=== PATIENT | female | born 1975 | race Two or more races ===

== ENCOUNTER 2018-07-10 10:50 | Outpatient (CLI) | payer BC ==
[2018-07-10 12:02] LABS: BASOPHILS # (AUTO) 0.1 /CMM (0.0-0.2); BASOPHILS % (AUTO) 0.9 % (0.0-2.0); EOSINOPHILS % (AUTO) 1.6 % (0.0-6.0); HEMATOCRIT 41 % (33-45); HEMOGLOBIN 13.8 g/dL (11.5-14.8); LYMPHOCYTES # (AUTO) 1.4 /CMM (0.8-4.8); LYMPHOCYTES % (AUTO) 24.6 % (20.0-44.0); MEAN CORPUSCULAR HGB CONC 34 g/dl (31.0-36.0); MEAN CORPUSCULAR VOLUME 89 fL (82-100); MONOCYTES # (AUTO) 0.3 /CMM (0.1-1.30); MONOCYTES % (AUTO) 5.5 % (2.0-12.0); NEUTROPHILS # (AUTO) 3.9 /CMM (1.8-8.9); NEUTROPHILS % (AUTO) 67.4 % (43.0-81.0); PLATELET COUNT (AUTO) 311 /CMM (150-450); RED BLOOD CELL COUNT(AUTO) 4.65 MIL/uL (4.0-5.2); WHITE BLOOD COUNT (AUTO) 5.8 K/uL (4.3-11.0)
[2018-07-10 12:14] LABS: ALBUMIN 4.1 g/dL (3.4-5.0); BILIRUBIN,TOTAL 0.4 mg/dL (0.2-1.0); CALCIUM, SERUM 9.4 mg/dL (8.5-10.1); CREATININE 0.7 mg/dL (0.6-1.3); MAGNESIUM 1.8 mg/dL (1.8-2.4); POTASSIUM 4.5 mmol/L (3.5-5.1)
[2018-07-10 12:23] LABS: THYROID STIMULATING HORMONE 0.812 uIU/mL (0.358-3.74)
== END 2018-07-10 23:59 | disposition home or self-care (01) ==
LOC: LAB 10:50
PROVIDERS: ATTEND Family Medicine
DX: M77.32 Calcaneal spur, left foot (principal); R53.83 Other fatigue; R22.42 Localized swelling, mass and lump, left lower limb; M25.561 Pain in right knee; M25.562 Pain in left knee
CPT/HCPCS: 36415; 73562; 73610-TC; 80053-TC; 80061-TC; 83735-TC; 84439-TC; 84443-TC; 85025-TC; 86431-TC

== ENCOUNTER 2018-08-21 09:37 | Outpatient (CLI) | payer BC | END 2018-08-21 23:59 | disposition home or self-care (01) | LOC: MRI 09:37 | PROVIDERS: ATTEND Family Medicine | DX: S93.492A Sprain of other ligament of left ankle, initial encounter (principal); S83.241A Other tear of medial meniscus, current injury, right knee, initial encounter; M25.461 Effusion, right knee; X58.XXXA Exposure to other specified factors, initial encounter; Y93.89 Activity, other specified; Y92.89 Other specified places as the place of occurrence of the external cause; Y99.8 Other external cause status | CPT/HCPCS: 73721-TC ==

== ENCOUNTER 2019-01-22 08:51 | Outpatient (CLI) | payer BC ==
[2019-01-22 09:32] LABS: CREATININE 0.7 mg/dL (0.6-1.3)
== END 2019-01-22 23:59 | disposition home or self-care (01) ==
LOC: LAB 08:51
PROVIDERS: ATTEND Family Medicine
DX: R31.9 Hematuria, unspecified (principal)
CPT/HCPCS: 36415; 82565-TC; 84520-TC

== ENCOUNTER 2019-02-12 09:09 | Outpatient (CLI) | payer BC ==
[2019-02-12] MEDS ORDERED: IV NS 0.9% 250 ML IV ONE (09:33)
[2019-02-12] MEDS ORDERED: IOHEXOL-300 100 ML VIAL IV ONE (09:33)
[2019-02-12] MEDS ORDERED: CT SWABBABLE VALVE TRANS SET 1 EA INFUS.SET MC ONE (09:33)
== END 2019-02-12 23:59 | disposition home or self-care (01) ==
LOC: CT 09:09
PROVIDERS: ATTEND Family Medicine
DX: N83.201 Unspecified ovarian cyst, right side (principal); N83.202 Unspecified ovarian cyst, left side; N88.8 Other specified noninflammatory disorders of cervix uteri; N28.89 Other specified disorders of kidney and ureter; R16.0 Hepatomegaly, not elsewhere classified; M47.814 Spondylosis without myelopathy or radiculopathy, thoracic region
CPT/HCPCS: 74178; J7050; Q9967

== ENCOUNTER 2021-03-18 11:09 | Outpatient (CLI) | payer BC | END 2021-03-18 23:59 | disposition home or self-care (01) | LOC: US 11:09 | PROVIDERS: ATTEND Family Medicine | DX: N83.202 Unspecified ovarian cyst, left side (principal); N88.8 Other specified noninflammatory disorders of cervix uteri; R93.89 Abnormal findings on diagnostic imaging of other specified body structures; N92.6 Irregular menstruation, unspecified; R31.9 Hematuria, unspecified | CPT/HCPCS: 76856-TC ==

== ENCOUNTER → 2021-03-30 | Outpatient (CLI) | payer BC ==
[~2021-03-30] MED LIST: GADOTERATE MEGLUMINE 10 MMOL/20 ML VIAL IV ONE
[2021-03-30 12:37] LABS: CREATININE 0.7 mg/dL (0.6-1.3)
== END | disposition home or self-care (01) ==
LOC: MRI 11:33
PROVIDERS: ATTEND Family Medicine
DX: N88.8 Other specified noninflammatory disorders of cervix uteri (principal)
CPT/HCPCS: 36415; 72197; 82565; 84520; A9575

== ENCOUNTER 2021-05-18 10:53 | Outpatient (CLI) | payer BC ==
[2021-05-18] MEDS ORDERED: IOHEXOL-350 100 ML VIAL IV ONE (11:36)
[2021-05-18] MEDS ORDERED: CT SWABBABLE VALVE TRANS SET 1 EA INFUS.SET MC ONE (11:37)
[2021-05-18] MEDS ORDERED: IV NS 0.9% 250 ML IV ONE (11:37)
== END 2021-05-18 23:59 | disposition home or self-care (01) ==
LOC: CT 10:53
PROVIDERS: ATTEND Family Medicine
DX: N28.1 Cyst of kidney, acquired (principal); K43.9 Ventral hernia without obstruction or gangrene; K42.9 Umbilical hernia without obstruction or gangrene; N28.9 Disorder of kidney and ureter, unspecified
CPT/HCPCS: 74178; J7050; Q9967

== ENCOUNTER 2021-07-20 10:24 | Outpatient (CLI) | payer BC ==
[2021-07-20 11:19] LABS: BASOPHILS % (AUTO) 0.8 % (0.0-2.0); EOSINOPHILS % (AUTO) 1.5 % (0.0-6.0); HEMATOCRIT 31 % (33-45); LYMPHOCYTES # (AUTO) 1.5 K/uL (0.8-4.8); LYMPHOCYTES % (AUTO) 27.1 % (20.0-44.0); MEAN CORPUSCULAR HGB CONC 32 g/dl (31.0-36.0); MEAN CORPUSCULAR VOLUME 78 fL (82-100); MONOCYTES # (AUTO) 0.3 K/uL (0.1-1.30); MONOCYTES % (AUTO) 5.6 % (2.0-12.0); NEUTROPHILS # (AUTO) 3.5 K/uL (1.8-8.9); PLATELET COUNT (AUTO) 348 K/uL (150-450); RED BLOOD CELL COUNT(AUTO) 3.98 MIL/uL (4.0-5.2); WHITE BLOOD COUNT (AUTO) 5.4 K/uL (4.3-11.0)
== END 2021-07-20 23:59 | disposition home or self-care (01) ==
LOC: LAB 10:24
PROVIDERS: ATTEND Obstetrics & Gynecology
DX: D64.9 Anemia, unspecified (principal)
CPT/HCPCS: 36415; 85025-TC